=== PATIENT | male | born 1955 | race Caucasian/White ===

== ENCOUNTER 2016-09-18 22:52 | Emergency (ER) | payer BC ==
[~2016-09-18] VITALS: Ht 177.8 cm; Wt 84.9 kg
[~2016-09-18 22:52] MED LIST: ASPERDRINK81 MG PO; CARVEDILOL6.25 MG PO; CIPRODEX OTIC7.5 ML RIGHT EAR; ELIQUIS2.5 MG PO; ELIQUIS5 MG PO; EXFORGE 5/161 TABLET PO; SIMVASTATIN20 MG PO; SIMVASTATIN5 MG PO; TERBINAFINE HC250 MG PO; VALSARTAN-HCTZ1 EAC1 PO; ZANTAC150 MG PO
[2016-09-18 23:33] LABS: HEMATOCRIT 41.7 % (38.0-50.0); MCHC 32.9 G/DL (30.0-36.0); MCV 91.4 FL (86-99); MEAN PLAT.VOLUME 9.3 uM^3 (9.0-12.4); PLATELET COUNT 319 K/uL (156-360); RBC DIS.WIDTH-CV 13.8 % (11.8-14.6); RBC DIS.WIDTH-SD 46.4 % (39-53); RED BLOOD COUNT 4.56 M/uL (4.00-5.50); WHITE BLOOD COUNT 6.8 K/uL (4.1-10.2)
[2016-09-18 23:41] LABS: CHLORIDE 109 mEq/L (99-109); POTASSIUM 4.6 mEq/L (3.7-5.4); SODIUM 139 mEq/L (136-147)
[2016-09-18 23:43] LABS: GLUCOSE 106 mg/dL (70-99)
[2016-09-18 23:44] LABS: ANION GAP 9 MEQ/L (2-14); INTER. NORMALIZED RATIO 2.2; PTT 34.2 (25-32)
[2016-09-18 23:47] LABS: GFR ESTIMATE (CALCULATED) > 59 mL/min/
[2016-09-18 23:48] LABS: UREA NITROGEN (BUN) 25 mg/dL (9-23)
[2016-09-18 23:54] LABS: TROP-I INTERPRETATION NEGATIVE; TROPONIN-I < 0.01 ng/mL (0.0-0.30)
[2016-09-19] MEDS ORDERED: XANAX0.5 MG PO (00:21)
[2016-09-19 00:30] VITALS: BP 153/87
== END 2016-09-19 00:41 | disposition home or self-care (01) ==
LOC: EME 22:52
PROVIDERS: Emergency Medicine
DX: R07.89 Other chest pain (principal); E78.5 Hyperlipidemia, unspecified; I10 Essential (primary) hypertension; K21.9 Gastro-esophageal reflux disease without esophagitis; Z95.4 Presence of other heart-valve replacement
CPT/HCPCS: 71020; 80048; 84484; 85027; 85610; 85730; 93005; 99281; 99285